=== PATIENT | female | born 1955 | race Caucasian/White ===

== ENCOUNTER 2016-12-20 13:06 | Emergency (ER) | payer MEDICAID ==
[~2016-12-20] VITALS: Ht 160 cm; Wt 102.2 kg
[2016-12-20 13:40] VITALS: BP 131/49
== END 2016-12-20 13:40 | disposition home or self-care (01) ==
LOC: ED 13:06
DX: S29.012A Strain of muscle and tendon of back wall of thorax, initial encounter (principal); V49.49XA Driver injured in collision with other motor vehicles in traffic accident, initial encounter; Y93.89 Activity, other specified; Y99.8 Other external cause status; Y92.89 Other specified places as the place of occurrence of the external cause